=== PATIENT | male | born 1970 | race Two or more races ===

== ENCOUNTER 2017-01-11 16:57 | Emergency (ER) | payer SELFPAY ==
--- NOTE | ~2017-01-11 | CT4 ---
[facility] A Service of [facility] / [facility] RADIOLOGY TEXT RESULTS PATIENT: TIAN MILLER LOCATION: SED : 72 UNIT #: [id number] AGE: [address]: MORGAN CAMPOVERDE SEX: M ORDER DR: [id number] [address] [address] [id number] MR#: [id number] Acc #: [id number] NAME: TIAN MILLER. : 1970 SEX: M STUDY DATE/TIME: 01/11/2017 17:26 UNIT: SED ROOM: STUDY DESCRIPTION: CT Abd and Pelv Wo Cont Attending Physician: Morgan Campoverde Ordering Physician: Staff Doctor Not On Primary Care Physician: No Primary Care Physician MEDICAL IMAGING REPORT This report is preliminary unless electronic signature is present. EXAM CT of the abdomen and pelvis without contrast. DATE OF EXAM 01/11/2017 INDICATION Abdominal pain and diarrhea for 3-4 days. Patient also reports hematuria and left flank pain. TECHNIQUE Axial CT images were obtained from the dome of the diaphragm through the symphysis pubis. No oral or intravenous contrast material was administered. NOTE: This CT exam was performed with one or more of the following radiation dose reduction techniques: automatic exposure control, adjustment of mA and/or kV according to patient size, and iterative reconstruction. FINDINGS Images through the lung bases are clear. Liver and gallbladder appear unremarkable. Stomach and proximal small bowel are within normal limits. Patient does have a lipid rich right adrenal adenoma measuring up to 1.7 cm in size. The spleen is within normal limits as is the pancreas. Both kidneys appear unremarkable. There are no stones identified and there is no hydronephrosis. No distal ureteral or bladder stones are seen. Prostate gland is within normal limits. I do question if perhaps there is some mild inflammatory stranding around the colon. Wall thickening within the colon cannot be accurately assessed on the basis of this examination, but the possibility of some underlying colitis is certainly not excluded given history. There is colonic diverticulosis, although, I do not see [facility] A Service of [facility] / [facility] RADIOLOGY TEXT RESULTS PATIENT: TIAN MILLER LOCATION: [facility] [place], [place] : [birth year] UNIT #: [id number] AGE: [address]: MORGAN CAMPOVERDE SEX: M ORDER DR: any convincing evidence of diverticulitis on these images. The appendix is visualized and is within normal limits. No free fluid or adenopathy is seen within the pelvis. Review of bony windows does not demonstrate any aggressive osseous abnormalities. IMPRESSION 1. I do question if perhaps there is some mild pericolonic soft tissue stranding particularly around the hepatic flexure, the possibility of colitis is certainly not excluded, given history. The presence or absence of wall thickening really cannot be assessed on the basis of this examination due to lack of intravenous and oral contrast material. I do not see any evidence of pneumatosis, free air or free fluid and there is no evidence of obstruction. 2. Colonic diverticulosis without evidence of diverticulitis. 3. The appendix is visualized and is normal. 4. Lipid rich right adrenal adenoma. 5. Please see the body of the report for any other additional incidental findings. Dictated by... Melony Avery M.D. THIS IS AN ELECTRONICALLY VERIFIED REPORT Melony Avery M.D. at 01/12/2017 4:39 PM SUZETTE/dorota TD: 01/11/2017 19:12 JOB #: [id number] MEDICAL IMAGING REPORT Page 1 of 1
[2017-01-11 16:28] LABS: BASOPHIL# 0.1 X10e3 (0-0.3); BASOPHIL% 0.7 % (0-2.5); EOSINOPHIL% 0.1 % (0.0-7.0); HEMATOCRIT 42.3 % (38.0-50.0); HEMOGLOBIN 14.4 gm/dL (13.0-16.0); LYMPHOCYTE# 1.2 X10e3 (1.0-3.5); LYMPHOCYTE% 12.1 % (17.0-45.0); MEAN CELL VOLUME 90.5 FL (83-96); MEAN CORPUSCULAR HEMOGLOBIN 30.9 PG (28-34); MEAN CORPUSCULAR HGB CONC 34.1 g/dL (30-36); MONOCYTE# 1.2 X10e3 (0-1.0); NEUTROPHIL# 7.3 X10e3 (1.5-7.1); NEUTROPHIL% 75.1 % (40-75); PLATELET COUNT 211 X10e3 (140-420); RED BLOOD COUNT 4.67 X10e (3.90-5.60); RED CELL DISTRIBUTION WIDTH 12.9 % (11.0-15.5); WHITE BLOOD COUNT 9.7 X10e3 (4.0-10.5)
[2017-01-11 16:30] LABS: DIFF IND NO
[2017-01-11 16:47] LABS: ALKALINE PHOSPHATASE 58 U/L (32-92); ALT (SGPT) 26 U/L (10-40); AMYLASE 21 U/L (0-46); AST (SGOT) 16 U/L (10-42); BILIRUBIN,TOTAL 0.4 mg/dL (0.2-2.0); BLOOD UREA NITROGEN 14 mg/dL (9-23); CARBON DIOXIDE 24 mmol/L (22-31); CHLORIDE 104 mmol/L (100-111); CREATININE SERUM 0.8 mg/dL (0.6-1.4); GLOM FILT RATE Estimated 107.9 mL/min (>60); GLUCOSE FASTING 143 mg/dL (70-110); LIPASE 28 U/L (22-51); POTASSIUM 3.4 mmol/L (3.5-5.1); PROTEIN TOTAL SERUM 7.5 g/dL (6.0-8.3); SODIUM 137 mmol/L (135-145)
[~2017-01-11 16:57] MED LIST: FAMOTIDINE PO; NO MEDICATIONS; PREDNISONE PO
[2017-01-11 17:08] LABS: BILIRUBIN, DIRECT <0.1 mg/dL (0.0-0.2); BILIRUBIN,INDIRECT 0.3 mg/dL (0.0-0.9)
[2017-01-11 17:09] LABS: URINE SOURCE CLEAN CATCH
[2017-01-11 17:11] LABS: URINE APPEARANCE CLEAR; URINE BILIRUBIN NEG (NEG); URINE BLOOD 3+ (NEG); URINE COLOR YELLOW; URINE GLUCOSE NEG (NORM); URINE KETONE NEG (NEG); URINE LEUKOCYTE ESTERASE NEG (NEG); URINE NITRATE NEG (NEG); URINE PH 5.5 (5-8); URINE PROTEIN 1+ (NEG); URINE SPECIFIC GRAVITY 1.025 (1.003-1.035)
[2017-01-11 17:13] LABS: MICRO INDICATED? YES
[2017-01-11 17:18] LABS: URINE BACTERIA NEG (NEG); URINE SQUAMOUS EPITHELIAL CELL FEW /[HPF]; URINE WBC 0-2 /[HPF] (0-5)
== END 2017-01-11 18:51 | disposition home or self-care (01) ==
LOC: SED 16:57
PROVIDERS: Nurse Practitioner
DX: K52.9 Noninfective gastroenteritis and colitis, unspecified (principal); F17.210 Nicotine dependence, cigarettes, uncomplicated
CPT/HCPCS: 36415; 74176; 80048; 80076; 81003; 82150; 83690; 85025; 96360; 99284